=== PATIENT | female | born 1995 | race African-American/Black ===

== ENCOUNTER 2023-03-09 13:08 | Outpatient (CLI) | payer OTHER | END 2023-03-09 13:09 | disposition home or self-care (01) | LOC: BICULT 13:08 | PROVIDERS: ATTEND Family Medicine | DX: Z34.82 Encounter for supervision of other normal pregnancy, second trimester (principal); Z3A.26 26 weeks gestation of pregnancy | CPT/HCPCS: 76805 ==

== ENCOUNTER 2024-02-27 12:18 | Outpatient (CLI) | payer OTHER | END 2024-02-27 12:19 | disposition home or self-care (01) | LOC: BICULT 12:18 | PROVIDERS: ATTEND Nurse Practitioner Women's Health | DX: Z34.83 Encounter for supervision of other normal pregnancy, third trimester (principal); Z3A.31 31 weeks gestation of pregnancy | CPT/HCPCS: 76805 ==